=== PATIENT | female | born 1955 | race Caucasian/White ===

== ENCOUNTER 2016-10-27 06:38 | Emergency (ER) | payer MEDICAID ==
[~2016-10-27] VITALS: Ht 157.5 cm; Wt 43.3 kg
[2016-10-27 06:39] VITALS: BP 169/110
[2016-10-27 08:17] LABS: BLOOD UREA NITROGEN 12 mg/dL (7-18)
== END 2016-10-27 09:14 | disposition home or self-care (01) ==
LOC: ED 07:46
DX: E03.9 Hypothyroidism, unspecified (principal); M54.9 Dorsalgia, unspecified; G89.29 Other chronic pain; I10 Essential (primary) hypertension; Z76.0 Encounter for issue of repeat prescription; Z88.6 Allergy status to analgesic agent; Z88.5 Allergy status to narcotic agent
CPT/HCPCS: 36415; 71020; 80048; 82040; 84436; 84443; 84481; 85025; 99285

== ENCOUNTER 2017-03-26 01:48 | Emergency (ER) | payer MEDICAID ==
[~2017-03-26] VITALS: Ht 157.5 cm; Wt 44.7 kg
[2017-03-26] MEDS ORDERED: VERA40TA PO (02:19)
[2017-03-26] MEDS ORDERED: FENO48TA16 PO (02:20)
[2017-03-26] MEDS ORDERED: ESTR1TAB PO (02:20)
[2017-03-26] MEDS ORDERED: CLON0.1T PO (02:20)
[2017-03-26] MEDS ORDERED: OXYC-306 PO (02:21)
[2017-03-26 02:48] LABS: DAU SCREEN DISCLAIMER
[2017-03-26 03:00] LABS: HEMATOCRIT 37.9 % (34.6-47.8); HEMOGLOBIN 12.7 g/dL (11.7-16.4); WHITE BLOOD COUNT 9.5 x10^3/uL (3.4-10)
[2017-03-26 03:13] LABS: ASPARTATE AMINO TRANSFERASE 22 U/L (15-37); BLOOD UREA NITROGEN 11 mg/dL (7-18)
[2017-03-26 03:48] VITALS: BP 166/106
== END 2017-03-26 03:50 | disposition home or self-care (01) ==
LOC: ED 02:10
DX: R10.30 Lower abdominal pain, unspecified (principal); R35.0 Frequency of micturition; I10 Essential (primary) hypertension; E03.9 Hypothyroidism, unspecified
CPT/HCPCS: 36415; 80053; 80307; 81001; 83690; 85025; 99284; G0479